=== PATIENT | male | born 1995 | race Caucasian/White ===

== ENCOUNTER 2018-05-31 06:51 | Emergency (ER) | payer BC ==
[2018-05-31] MEDS ORDERED: Famotidine IV* 10 MG/ML 2 ML (20 mg) IV ONE (07:11)
[2018-05-31] MEDS ORDERED: Ondansetron INJ* 2 MG/ML VIAL IV ONE (07:11)
[2018-05-31] MEDS ORDERED: NS 0.9% 1000 ML** 1,000 ML IV ONE (07:11)
--- NOTE | 2018-05-31 07:21 | ED ---
Nausea/Vomiting/Diarrhea HPI - HPI Summary HPI Summary: Patient is a 22-year-old male with no significant PMH presenting to the ED with nausea, vomiting and diarrhea for approximate 7 hours. He endorses approximately 5 episodes of vomiting and 3 episodes of diarrhea. Diarrhea is loose, however not watery. He denies eating anything abnormal to his knowledge. He denies any known sick contacts. He did not receive a flu vaccine this ear. He denies any fevers, sweats, chills. He attempted to take 2 rounds of Pepto-Bismol without effect. He is concerned over dehydration. He called Replaced by [facility] who sent him here for further evaluation. He does admit to small flecks of red/black concerning for a bleed. He denies any blood thinners. - History of Current Complaint Chief Complaint: EDPaulie Stated Complaint: "VOMITING/DIARRHEA FOR THE PAST 7HRS" PER PT Time Seen by Provider: 05/31/18 06:56 Hx Obtained From: Patient Onset/Duration: Sudden Onset Timing: Constant Severity Initially: Mild Severity Currently: Mild Pain Intensity: 7 Pain Scale Used: 0-10 Numeric Location: Diffuse Character: Cramping Aggravating Factor(s): Nothing Alleviating Factor(s): Nothing Vomiting Frequency: Every 15-60 minutes Nausea/Vomiting Duration: 0-12 hours Vomiting Characteristics: Retching Diarrhea Presence: Yes Diarrhea Frequency: Every 1-2 hours Diarrhea Duration: 0-12 hours - Risk Factors Influenza Risk Factors: Negative Surgical Obstruction Risk Factor(s): Negative - Allergies/Home Medications Allergies/Adverse Reactions: Allergies Allergy/AdvReac Type Severity Reaction Status Date / Time No Known Allergies Allergy Verified 05/31/18 06:57 PMH/Surg Hx/FS Hx/Imm Hx Previously Healthy: Yes - Immunization History Hx Pertussis Vaccination: No Immunizations Up to Date: Yes Infectious Disease History: No Infectious Disease History: Denies: Traveled Outside the [place] in Last 30 Days - Social History Occupation: Unemployed Lives: With Family Alcohol Use: Weekly Alcohol Amount: 1-2 days/week Hx Substance Use: Yes Substance Use Type: Reports: Marijuana Hx Tobacco Use: Yes Smoking Status (MU): Current Some Day Smoker Review of Systems Positive: Fatigue, Skin Diaphoresis. Negative: Fever, Chills Negative: Photophobia, Blurred Vision Negative: Dental Pain, Sore Throat Negative: Palpitations, Chest Pain Negative: Shortness Of Breath, Cough Positive: Abdominal Pain, Vomiting, Diarrhea, Nausea Genitourinary: Negative Positive: no symptoms reported, see HPI. Negative: burning, dysuria, incontinence Negative: Arthralgia, Myalgia Neurological: Negative All Other Systems Reviewed And Are Negative: Yes Physical Exam Triage Information Reviewed: Yes Vital Signs On Initial Exam: Initial Vitals Temp Pulse Resp BP Pulse Ox 99.4 F 100 16 139/85 97 05/31/18 06:53 05/31/18 06:53 05/31/18 06:53 05/31/18 06:53 05/31/18 06:53 Vital Signs Reviewed: Yes Appearance: Positive: Well-Appearing, Well-Nourished Skin: Positive: Warm, Skin Color Reflects Adequate Perfusion Head/Face: Positive: Normal Head/Face Inspection Eyes: Positive: EOMI, Conjunctiva Clear Neck: Positive: Supple, No Lymphadenopathy Respiratory/Lung Sounds: Positive: Clear to Auscultation, Breath Sounds Present Cardiovascular: Positive: RRR, Pulses are Symmetrical in both Upper and Lower Extremities. Negative: Leg Edema Left, Leg Edema Right Musculoskeletal: Positive: Normal, Strength/ROM Intact Neurological: Positive: Alert, Oriented to Person Place, Time, Speech Normal Psychiatric: Positive: Affect/Mood Appropriate AVPU Assessment: Alert Diagnostics - Vital Signs Vital Signs Temp Pulse Resp BP Pulse Ox 05/31/18 06:53 99.4 F 100 16 139/85 97 - Laboratory Result Diagrams: 05/31/18 07:24 05/31/18 07:24 Lab Statement: Any lab studies that have been ordered have been reviewed, and results considered in the medical decision making process. Naus/Vom/Diarrhea Course/Dx - Course Course Of Treatment: During this patient's course of treatment, he is evaluated for nausea, vomiting, diarrhea. He has no abdominal tenderness diffusely throughout all 4 quadrants. Lungs are CTA, RRR. No swelling bilaterally noted and lower extremities. He is nondiaphoretic and nontoxic in appearing. Vital signs are stable and he is afebrile on arrival. He denies any cardiac history. He is given 1 L normal saline, Zofran, famotidine with good effect. Flu swab obtained. Labs obtained which are WNL. Flu swab negative. Patient states he feels much improved and denies any symptoms currently. He offers no other complaints and is okay for discharge at this time. Zofran sent to pharmacy. - Differential Dx/Diagnosis Provider Diagnosis: Nausea & vomiting Condition At Discharge: Stable Discharge - Sign-Out/Discharge Documenting (check all that apply): Patient Departure Patient Received Moderate/Deep Sedation with Procedure: No - Discharge Plan Condition: Stable Disposition: HOME Prescriptions: Ondansetron ODT TAB* [Zofran 4 MG Odt TAB*] 4 mg PO Q6H PRN #12 tab.odt MDD 4 PRN Reason: Nausea Patient Education Materials: Acute Nausea and Vomiting (ED) Forms: *School Release Referrals: No Primary Care Phys,NOPCP [Primary Care Provider] - Additional Instructions: Drink plenty of fluids today Zofran 4 mg up to 4 times daily for nausea and vomiting - Billing Disposition and Condition Condition: STABLE Disposition: Home
[2018-05-31 07:34] LABS: ABS Basophils 0 10^3/ul (0-0.2); ABS Eosinophils 0 10^3/ul (0-0.6); ABS Lymphocytes 0.2 10^3/ul (1.0-4.8); ABS Monocytes 0.5 10^3/ul (0-0.8); ABS Neutrophils 10.4 10^3/ul (1.5-7.7); ABS Nucleated RBC 0 10^3/ul; Eosinophil % 0.2 %; Hematocrit 48 % (36-46); Lymphocyte % 1.9 %; Mean Corpuscular HGB Conc 36 g/dL (31-36); Mean Corpuscular Hemoglobin 30 pg (27-31); Mean Corpuscular Volume 83 fL (80-94); Mean Platelet Volume 9.2 fL (7.4-10.4); Nucleated Red Blood Cells % 0; Platelet Count 151 10^3/uL (150-450); Red Blood Count 5.75 10^6 /uL (4.18-5.48); Red Cell Distribution Width 13 % (10.5-15); White Blood Count 11.1 10^3/uL (3.5-10.8)
[2018-05-31 07:51] LABS: Albumin/Globulin Ratio 2.2 (1-3); BUN/Creatinine Ratio 31.2 (8-20); C Reactive Protein 2.94 mg/L (<8.01); Calcium 9.6 mg/dL (8.6-10.3); EGFR African American 124.1 (>60); EGFR Non-African American 102.6 (>60); Globulin 2.3 g/dL (2-4); Magnesium 1.9 mg/dL (1.9-2.7); Potassium 4.2 mmol/L (3.5-5.0); Total Bilirubin 2.2 mg/dL (0.2-1.0); Total Protein 7.3 g/dL (6.4-8.9)
[2018-05-31 08:02] LABS: Influenza A Molecular NEGATIVE (Negative); Influenza B Molecular NEGATIVE (Negative)
[2018-05-31 09:37] VITALS: BP 122/72
== END 2018-05-31 09:36 | disposition home or self-care (01) ==
LOC: ED 06:51
DX: R11.2 Nausea with vomiting, unspecified (principal); R53.83 Other fatigue; R10.9 Unspecified abdominal pain; R19.7 Diarrhea, unspecified; Z72.0 Tobacco use
CPT/HCPCS: 36415; 80053; 83605; 83690; 83735; 85025; 86140; 96361; 96374; 96375; 99283; J2405